=== PATIENT | female | born 1950 | race Caucasian/White ===

== ENCOUNTER 2023-04-14 13:51 | Outpatient (OUT) | payer OTHER, SELFPAY ==
--- NOTE | 2023-04-14 | ECG_ITS ---
The [facility] Test Date: 2023-04-14 Pat Name: SUDEEP JACOB Department: Room: - Gender: Female [employer]: : [id number] Requested By: [id number] Order Number: [id number] Reading MD: KELSY HOWARD Measurements Intervals [place] Rate: 95 P: -7 WA: 128 QRS: 99 QRSD: 88 T: 79 QT: 344 QTc: 434 Interpretive Statements SINUS RHYTHM BORDERLINE RIGHT AXIS DEVIATION [QRS AXIS > 90] LOW QRS VOLTAGE IN PRECORDIAL LEADS [QRS DEFLECTION < 1.0 mV IN CHEST LEADS] Compared to ECG 04/01/2019 14:30:14 Low QRS voltage now present Sinus tachycardia no longer present Electronically Signed On 04-14-2023 23:13:23 EST by KELSY HOWARD
== END 2023-04-14 13:52 | disposition home or self-care (01) ==
LOC: CARD 13:54
PROVIDERS: PCP Internal Medicine
DX: Z01.818 Encounter for other preprocedural examination (principal)
CPT/HCPCS: 93005